=== PATIENT | male | born 1985 | race Caucasian/White ===

== ENCOUNTER 2017-04-15 16:52 | Emergency (ER) | payer SELFPAY | END 2017-04-15 17:12 | disposition home or self-care (01) | LOC: SCSER 16:52 | DX: J11.1 Influenza due to unidentified influenza virus with other respiratory manifestations (principal) | CPT/HCPCS: 99283 ==

== ENCOUNTER 2018-04-18 09:13 | Emergency (ER) | payer SELFPAY | END 2018-04-18 11:35 | disposition home or self-care (01) | LOC: ERS 09:13 | DX: J11.1 Influenza due to unidentified influenza virus with other respiratory manifestations (principal) | CPT/HCPCS: 87081; 87430; 87804; 99283 ==